=== PATIENT | female | born 2000 | race Two or more races ===

== ENCOUNTER → 2020-06-25 08:19 | Outpatient (CLI) | payer OTHER | END | disposition home or self-care (01) | LOC: LAB 08:19 | PROVIDERS: ATTEND General Practice | DX: M54.2 Cervicalgia (principal); Z00.01 Encounter for general adult medical examination with abnormal findings; Z68.39 Body mass index [BMI] 39.0-39.9, adult; Z12.11 Encounter for screening for malignant neoplasm of colon; Z11.3 Encounter for screening for infections with a predominantly sexual mode of transmission; Z11.4 Encounter for screening for human immunodeficiency virus [HIV]; Z12.4 Encounter for screening for malignant neoplasm of cervix; Z13.0 Encounter for screening for diseases of the blood and blood-forming organs and certain disorders involving the immune mechanism; Z13.1 Encounter for screening for diabetes mellitus; Z13.220 Encounter for screening for lipoid disorders; Z13.29 Encounter for screening for other suspected endocrine disorder; Z13.228 Encounter for screening for other metabolic disorders ==

== ENCOUNTER 2020-06-25 09:16 | Outpatient (CLI) | payer OTHER | END 2020-06-25 09:36 | disposition home or self-care (01) | LOC: RAD 09:16 | PROVIDERS: ATTEND General Practice | DX: M54.2 Cervicalgia (principal); Z00.01 Encounter for general adult medical examination with abnormal findings; Z68.39 Body mass index [BMI] 39.0-39.9, adult; Z12.11 Encounter for screening for malignant neoplasm of colon; Z11.3 Encounter for screening for infections with a predominantly sexual mode of transmission; Z11.4 Encounter for screening for human immunodeficiency virus [HIV]; Z12.4 Encounter for screening for malignant neoplasm of cervix; Z13.0 Encounter for screening for diseases of the blood and blood-forming organs and certain disorders involving the immune mechanism; Z13.1 Encounter for screening for diabetes mellitus; Z13.220 Encounter for screening for lipoid disorders; Z13.228 Encounter for screening for other metabolic disorders ==

== ENCOUNTER 2020-06-26 12:47 | Outpatient (CLI) | payer OTHER | END 2020-06-26 15:26 | disposition home or self-care (01) | LOC: MAMO-SONO 12:47 | PROVIDERS: ATTEND General Practice | DX: E03.8 Other specified hypothyroidism (principal); Z00.01 Encounter for general adult medical examination with abnormal findings; Z12.11 Encounter for screening for malignant neoplasm of colon; Z11.3 Encounter for screening for infections with a predominantly sexual mode of transmission; Z11.4 Encounter for screening for human immunodeficiency virus [HIV]; Z04.2 Encounter for examination and observation following work accident; Z68.39 Body mass index [BMI] 39.0-39.9, adult ==

== ENCOUNTER 2021-02-13 10:47 | Emergency (ER) | payer OTHER ==
[~2021-02-13] VITALS: Ht 160 cm; Wt 90.7 kg
== END 2021-02-13 13:52 | disposition home or self-care (01) ==
LOC: ER 10:47
DX: B34.9 Viral infection, unspecified (principal); Z20.822 Contact with and (suspected) exposure to COVID-19

== ENCOUNTER → 2024-03-14 | Emergency (ER) | payer OTHER ==
[~2024-03-14] VITALS: Ht 160 cm; Wt 95.3 kg
[2024-03-14 04:17] VITALS: BP 127/89; O2SAT 99
== END | disposition left against medical advice (07) ==
LOC: ER 04:16
DX: Z53.21 Procedure and treatment not carried out due to patient leaving prior to being seen by health care provider (principal)

== ENCOUNTER 2024-09-22 18:42 | Emergency (ER) | payer OTHER ==
[~2024-09-22] VITALS: Ht 160 cm; Wt 87.1 kg
[2024-09-22 21:31] LABS: BASO % 0.5 % (0.1-1.2); EOS # 0.12 (0.04-0.54); EOS % 1.6 % (0.7-7.0); LYMPH # 2.08 (1.18-3.74); LYMPH % 27.9 % (19.3-53.1); MEAN PLATELET VOLUME 10.40 fl (9.4-12.4); MONO # 0.60 (0.24-0.82); MONO % 8.0 % (4.7-12.5); NEUT # 4.59 (1.56-6.13); NEUT % 61.6 % (34.0-71.1); RED CELL DISTRIBUTION WIDTH 12.2 % (11.6-14.4)
[2024-09-22 22:10] LABS: ALT/SGPT 18.0 U/L (12-78); AST/SGOT 11.0 U/L (15-37); BILIRUBIN TOTAL 0.43 mg/dL (0.3-1.2); BUN CREA RATIO 15.0 (7.0-25.0); CREATININE SERUM 0.72 mg/dL (0.55-1.02); GFR 98.69; GLOBULINA 3.6 G/DL (2.4-3.5); GLUCOSE FASTING 86.0 mg/dL (65-100); OSMOLALITY SERUM 280.0 MOSM/KG (275-295)
[2024-09-22 23:05] LABS: URINE BACTERIA 1856.3 uL (0.0-1933); URINE EPITHELIAL CELLS 38.9 uL (0.0-38.8); URINE RBC 3.0 uL (0.0-20.8); URINE WBC 54.7 uL (0.0-23.2)
[2024-09-22 23:09] LABS: URINE APPEARANCE Clear; URINE BILIRRUBIN Negative (NEGATIVE); URINE BLOOD Negative; URINE COLOR Yellow; URINE GLUCOSE Negative (NEGATIVE); URINE KETONE Trace (NEGATIVE); URINE LEUKOCYTE Small; URINE NITRATE Negative; URINE PROTEIN Negative (NEGATIVE); URINE UROBILINOGEN 1.0 E.U./dl
[2024-09-22 23:10] LABS: URINE CAST 0.73 uL (0.0-1.40)
[2024-09-22] MEDS ORDERED: KETOROLAC TROMETHAMINE 30 MG VIAL IM ONE (23:45)
== END 2024-09-23 00:05 ==
LOC: ER 18:42
PROVIDERS: General Practice
DX: D25.9 Leiomyoma of uterus, unspecified (principal); R10.2 Pelvic and perineal pain; Z91.013 Allergy to seafood